=== PATIENT | female | born 1995 | race Two or more races ===

== ENCOUNTER 2021-01-31 21:12 | Emergency (ER) | payer OTHER ==
[~2021-01-31] VITALS: Ht 165.1 cm; Wt 59.0 kg
[2021-01-31 21:15] VITALS: BP 128/85
== END 2021-01-31 22:52 ==
LOC: ER 21:14
DX: Z02.89 Encounter for other administrative examinations (principal); Z20.822 Contact with and (suspected) exposure to COVID-19
CPT/HCPCS: 87426; 99283; C9803